=== PATIENT | male | born 1950 | race Caucasian/White ===

== ENCOUNTER 2023-07-21 05:42 | Observation (INO) ==
--- NOTE | 2023-05-14 09:26 | PAT Medication Instructions ---
Medication Instructions Date of Service May 14, 2023 Home Medications Docusate Sodium 100 mg PO BID PRN Constipation albuterol sulfate 90 mcg/actuation aerosol inhaler 2 puff inhalation QID PRN sob aspirin 81 mg capsule 81 mg PO DAILY cholecalciferol (vitamin D3) 125 mcg (5,000 unit) tablet (Vitamin D3) 125 mcg PO DAILY enalapril maleate 5 mg tablet (Vasotec) 5 mg PO QAM hydrocodone 5 mg-acetaminophen 325 mg tablet 1 tab PO Q8H PRN Pain lisinopril 20 mg tablet 20 mg PO QAM metformin 500 mg tablet 500 mg PO QAM metoprolol tartrate 25 mg tablet 25 mg PO QAM oxycodone-acetaminophen 10 mg-325 mg tablet 1 tab PO Q8H PRN Pain pantoprazole 40 mg tablet,delayed release 40 mg PO QAM tamsulosin 0.4 mg capsule 0.4 mg PO QAM vitamin K2 40 mcg tablet 40 mcg PO DAILY STOP taking 2 weeks before surgery (or as soon as possible if surgery is within 2 weeks) vitamin K2 40 mcg tablet 40 mcg PO DAILY DO NOT take the morning of surgery Docusate Sodium 100 mg PO BID PRN Constipation cholecalciferol (vitamin D3) 125 mcg (5,000 unit) tablet (Vitamin D3) 125 mcg PO DAILY enalapril maleate 5 mg tablet (Vasotec) 5 mg PO QAM lisinopril 20 mg tablet 20 mg PO QAM metformin 500 mg tablet 500 mg PO QAM Take morning of surgery With a small sip of water, OTHERWISE NOTHING TO EAT OR DRINK AFTER MIDNIGHT: albuterol sulfate 90 mcg/actuation aerosol inhaler 2 puff inhalation QID PRN sob (use if needed; please bring rescue inhaler with you to hospital day of surgery if possible) aspirin 81 mg capsule 81 mg PO DAILY (continue as normal unless told otherwise by surgeon) hydrocodone 5 mg-acetaminophen 325 mg tablet 1 tab PO Q8H PRN Pain (if needed) metoprolol tartrate 25 mg tablet 25 mg PO QAM oxycodone-acetaminophen 10 mg-325 mg tablet 1 tab PO Q8H PRN Pain (if needed) pantoprazole 40 mg tablet,delayed release 40 mg PO QAM tamsulosin 0.4 mg capsule 0.4 mg PO QAM Take evening before surgery Docusate Sodium 100 mg PO BID PRN Constipation (if needed) albuterol sulfate 90 mcg/actuation aerosol inhaler 2 puff inhalation QID PRN sob (if needed) hydrocodone 5 mg-acetaminophen 325 mg tablet 1 tab PO Q8H PRN Pain (if needed) oxycodone-acetaminophen 10 mg-325 mg tablet 1 tab PO Q8H PRN Pain (if needed) Other Notes If you have any questions please call us at [phone] or [phone] or [phone] or [phone]
--- NOTE | 2023-05-19 10:22 | Anesthesiology Consultation ---
Date of Service May 19, 2023 Assessment & Plan (1) Encounter for pre-operative examination: - Check BSG AM DOS - Infectious disease screening: Per assessment on 05/19/23: No known infectious disease contacts or current infectious disease symptoms. No noted recent Covid positive test result. - Outpatient joint assessment: Pt currently scheduled for inpatient pathway. If surgeon requests review for outpatient joint pathway, patient is not recommended candidate for outpatient joint program from anesthesia standpoint. - Cardiology visit (03/12/23): Significant cardiac workup for chronic, atypical chest pain (dating back 15+ years, at baseline/unchanged per patient) including several stress tests, coronary CTA, echos, cardiac cath. "Coronary artery disease (nonobstructive by cath 02/2022): Stable. Nuclear stress test in January was normal (ordered by PCP for chest pain). LV function normal on recently ech ocardiogram.. Aortic stenosis: Moderate by recent echocardiogram.. Will continue to monitor- no intervention required at this time- repeat echocardiogram in one year.. Ascending aortic aneurysm: 4.5 cm on recent echocardiogram- no significant change compared to prior study.. Will reevaluate on follow up echo next year" - *Moderate aortic stenosis: Per echo 03/2023* - Patient scheduled to see PCP prior to surgery. Awaiting upcoming PCP office visit (Dr. Luke Valladares/Michelle, appt 05/21). Patient otherwise acceptable risk for surgery. Chart Review Chart Review: Acceptable Risk for Surgery and Patient seen in Pre Admission Testing Teaching & Discussion Pre-Anesthesia Teaching/Discussion Notes: Instructed NPO after midnight before surgery,except medications with 15 cc of water. Medication instructions provided according to the PAT guidelines. History Surgery Operation Date: 06/16/23 08:15 Proposed Procedures p Right Total Knee Arthroplasty - Gerald Carvalho DO Height/Weight Height: 5 ft 9 in Weight: 98.8 kg Allergies Allergy/AdvReac Type Severity Reaction Status Date / Time No Known Allergies Allergy Unverified 05/13/23 09:02 Medications Home Medications Medication Instructions Recorded Confirmed Last Taken Docusate Sodium 100 mg PO BID PRN Constipation 05/13/23 05/13/23 Unknown albuterol sulfate 90 mcg/actuation 2 puff inhalation QID PRN sob 05/13/23 05/13/23 Unknown aerosol inhaler aspirin 81 mg capsule 81 mg PO DAILY 05/13/23 05/13/23 Unknown cholecalciferol (vitamin D3) 125 125 mcg PO DAILY 05/13/23 05/13/23 Unknown mcg (5,000 unit) tablet (Vitamin D3) enalapril maleate 5 mg tablet 5 mg PO QAM 05/13/23 05/13/23 Unknown (Vasotec) hydrocodone 5 mg-acetaminophen 325 1 tab PO Q8H PRN Pain 05/13/23 05/13/23 Unknown mg tablet lisinopril 20 mg tablet 20 mg PO QAM 05/13/23 05/13/23 Unknown metformin 500 mg tablet 500 mg PO QAM 05/13/23 05/13/23 Unknown metoprolol tartrate 25 mg tablet 25 mg PO QAM 05/13/23 05/13/23 Unknown oxycodone-acetaminophen 10 mg-325 1 tab PO Q8H PRN Pain 05/13/23 05/13/23 Unknown mg tablet pantoprazole 40 mg tablet,delayed 40 mg PO QAM 05/13/23 05/13/23 Unknown release tamsulosin 0.4 mg capsule 0.4 mg PO QAM 05/13/23 05/13/23 Unknown vitamin K2 40 mcg tablet 40 mcg PO DAILY 05/13/23 05/13/23 Unknown Past Medical History Medical History CAD (coronary artery disease) Cardiac cath 02/2022: Nonobstructive CAD (20% proximal to mid LAD, 20% proximal D1, 20% proximal LCx) > medical management recommended Aortic stenosis Echo 03/2023: Moderate aortic stenosis (MG 31 mmHg, LIZETH 1.5 cm) Environmental and seasonal allergies Edema of both feet occasionally Peripheral neuropathy History of COVID-2019- resolved HTN (hypertension) GERD (gastroesophageal reflux disease) Diabetes Diet controlled Asthma Sleep apnea No device Dyslipidemia Exercise / Class Metabolic Activity III < 4 Walking/Shop/Light housework (one FS (no CP, no SOB)) Past Surgical History Surgical History Hx of tonsillectomy Hx of cardiac catheterization 02/2022- no stents Hx of bilateral cataract extraction Hx of colonoscopy Hx of shoulder surgery History of left knee replacement Hx of cholecystectomy Past Anesthesia History No Hx of Anesthesia Complications and No Family Hx of Anesthesia Complications History of PONV No Hx of PONV and No Hx of Motion Sickness Social History Smoking Status: Never smoker Do You Dip or Chew Tobacco: Yes (Daily- advised none DOS) Hx Alcohol Use: Yes alcohol intake frequency: a few times a week Hx Substance Use: No substance use type: does not use Review of Systems Chronic intermittent chest pain x past 15+ years s/p extensive/unremarkable cardiac workup including EKG/echo/stress/cardiology evaluation. No noted stressors. Determined to be atypical chest pain. Occasional wheezing r/t asthma, unchanged/at baseline. Rare palpitations. Patient denies chest pain, shortness of breath, fever, chills, cough. Physical Exam Vital Signs VITALS BP 126/80 P 77 TEMP 98.0 SP02 95%RA RESP 18 PHYSICAL Full cervical extension range of motion. Full TMJ range of motion. TMD 4 finger breaths Mallampati Score 1 Dentition: intact Lungs: clear throughout to auscultation Cardiac: regular rate and rhythm, no murmurs noted Spine: normal Carotid arteries: negative bruit Extremities: no LE edema Lab Results Anesthesia Preop Results Results Anesthesia Widget: WBC 7.50 K/ul (4.8-10.8) 05/19/23 Hgb 15.5 g/dl (14.0-18.0) 05/19/23 Hct 41.9 % (42.0-52.0) L 05/19/23 Plt 179 K/uL (130-400) 05/19/23 Na 137 mmol/L (136-145) 05/19/23 K 3.6 mmol/L (3.5-5.1) 05/19/23 Cl 102 mmol/L (98-107) 05/19/23 CO2 25 mmol/L (21-32) 05/19/23 BUN 10 mg/dl (6-23) 05/19/23 Creat 0.65 mg/dl (0.6-1.4) 05/19/23 Glucose Level 145 mg/dl (70-99(Fasting)) H 05/19/23 PT 11.4 Seconds (9.0-12.0) 05/19/23 PTT 31 Seconds (21-31) 05/19/23 INR 1.0 (0.9-1.1) 05/19/23 HA1c 6.3 % (4.5-5.6) H 05/19/23 Urine Color Yellow 05/19/23 Urine Appearance Clear (Clear) 05/19/23 Urine pH 5.5 (4.5-7.5) 05/19/23 Urine Specific [place] 1.017 (1.000-1.030) 05/19/23 Urine Protein Trace (Negative) H 05/19/23 Urine Glucose (UA) Negative (Negative) 05/19/23 Urine Ketones Negative (Negative) 05/19/23 Urine Blood Negative (Negative) 05/19/23 Urine Nitrite Negative (Negative) 05/19/23 Urine Bilirubin Negative (Negative) 05/19/23 Urine Urobilinogen Negative (Negative) 05/19/23 Urine Leukocyte Esterase Negative (Negative) 05/19/23 Urine WBC (Auto) 1-5 /hpf (0-5) 05/19/23 Urine RBC (Auto) 0-4 /hpf (0-4) 05/19/23 Urine Hyaline Casts (Auto) 0 /lpf (0-5) 05/19/23 Urine Epithelial Cells (Auto) 0-5 /lpf (0-5) 05/19/23 Urine Bacteria (Auto) Negative (Negative) 05/19/23 Blood Type O Positive 05/19/23 Antibody Screen NEGATIVE 05/19/23 Testing Electrocardiogram Date: 08/28/22 SR at 75bpm. "Within normal limits" Chest X-Ray Date: 06/10/23 FINDINGS: A few small bibasilar linear densities which favor subsegmental atelectasis or scarring. Otherwise, the lungs are clear. No pleural effusions. No pneumothorax. The cardiac silhouette is top normal in size. No acute fractures. Prior cholecystectomy. IMPRESSION: No acute process. Echocardiogram Date: 03/11/23 EF 60%. Moderately calcified aortic valve. Doppler data is consistent with moderate aortic stenosis (MG 31 mmHg, LIZETH 1.5 cm). Mild to moderate AR. Dilated ascending aorta, 4.5 cm. Stress Test Date: 02/02/23 Type: nuclear Normal study. There is normal uptake of radioactivity on both the stress and the resting images there is no evidence of ischemic changes or old myocardial infarct. Normal LV wall motion. Calculated LV EF 55%. "Normal study" Cardiac Catheterization Date: 03/05/22 Nonobstructive CAD (20% proximal to mid LAD, 20% proximal D1, 20% proximal LCx). Systemic hypertension. Recommendations: Optimize medical therapy. Increase beta-vel and add amlodipine. Continue aspirin and statin therapy.
--- NOTE | 2023-05-25 07:48 | History & Physical Report ---
Date of Service May 25, 2023 date of surgery: 06/16/23 Procedure: Right Total Knee Arthroplasty Surgeon: Gerald Carvlaho, Assessment & Plan (1) Arthritis of right knee: Plan: Risk and benefits of procedure were discussed, he wishes to proceed with a right total knee arthroplasty. Plan to be overnight stay at the hospital with discharge home with home health physical therapy. Will place on aspirin 81 mg twice a day for 1 month postop DVT prophylaxis, he otherwise has no other questions or concerns The risks and benefits have been discussed including, but not limited to, risk of infection, nerve injury, stiffness, loss of motion, failure to improve, etc. Reasonable outcomes and options of treatment were discussed. An explanation of appropriate alternatives to the procedure that may be advantageous were discussed and their risks and benefits, as well as the risks and benefits of not proceeding with treatment. I offered to answer any additional inquiries concerning the treatment involved. All the patient's questions were answered. The patient is agreeable, understanding of the treatment plan and alternatives, and wishes to proceed with the treatment plan. History of Present Illness Chief Complaint: Right knee pain Primary Care Provider: Luke Valladares MD Mr Crystal is a pleasant 72-year-old male who presented for preop evaluation prior to his upcoming right total knee arthroplasty. He has a longstanding history of right knee pain, has remote history of right knee arthroscopy with ACL reconstruction and partial medial lateral meniscectomies approximately 10 years ago. Since that time he is undergone injections, use of oral anti- inflammatories and Tylenol without improvement. X-rays were reviewed which show degenerative changes to his right knee. He has a history of left total knee arthroplasty at this point time is failed conservative measures and wishes to proceed with a right total knee replacement Allergies Allergy/AdvReac Type Severity Reaction Status Date / Time No Known Allergies Allergy Unverified 05/13/23 09:02 Home Medications Medication Instructions Recorded Confirmed Type Docusate Sodium 100 mg PO BID PRN Constipation 05/13/23 05/13/23 History albuterol sulfate 90 mcg/actuation 2 puff inhalation QID PRN sob 05/13/23 05/13/23 History aerosol inhaler aspirin 81 mg capsule 81 mg PO DAILY 05/13/23 05/13/23 History cholecalciferol (vitamin D3) 125 125 mcg PO DAILY 05/13/23 05/13/23 History mcg (5,000 unit) tablet (Vitamin D3) enalapril maleate 5 mg tablet 5 mg PO QAM 05/13/23 05/13/23 History (Vasotec) hydrocodone 5 mg-acetaminophen 325 1 tab PO Q8H PRN Pain 05/13/23 05/13/23 History mg tablet lisinopril 20 mg tablet 20 mg PO QAM 05/13/23 05/13/23 History metformin 500 mg tablet 500 mg PO QAM 05/13/23 05/13/23 History metoprolol tartrate 25 mg tablet 25 mg PO QAM 05/13/23 05/13/23 History oxycodone-acetaminophen 10 mg-325 1 tab PO Q8H PRN Pain 05/13/23 05/13/23 History mg tablet pantoprazole 40 mg tablet,delayed 40 mg PO QAM 05/13/23 05/13/23 History release tamsulosin 0.4 mg capsule 0.4 mg PO QAM 05/13/23 05/13/23 History vitamin K2 40 mcg tablet 40 mcg PO DAILY 05/13/23 05/13/23 History Past Med/Surg History Medical History CAD (coronary artery disease) Cardiac cath 02/2022: Nonobstructive CAD (20% proximal to mid LAD, 20% proximal D1, 20% proximal LCx) > medical management recommended Aortic stenosis Echo 03/2023: Moderate aortic stenosis (MG 31 mmHg, LIZETH 1.5 cm) Environmental and seasonal allergies Edema of both feet occasionally Peripheral neuropathy History of COVID-19 2019- resolved HTN (hypertension) GERD (gastroesophageal reflux disease) Diabetes Diet controlled Asthma Sleep apnea No device Dyslipidemia Surgical History Hx of tonsillectomy Hx of cardiac catheterization 02/2022- no stents Hx of bilateral cataract extraction Hx of colonoscopy Hx of shoulder surgery History of left knee replacement Hx of cholecystectomy Social History Smoking Status: Never smoker Tobacco Type: Smokeless Tobacco (Dip or Chew) Second Hand Exposure: No; Do You Dip or Chew Tobacco: Yes (Daily- advised none DOS); Hx Alcohol Use: Yes Hx Substance Use: No Preferred Language: Ukrainian Communication Ability: Effective Conventions Assistant Required: No Beliefs That Will Affect Care: None Current Living Situation: Significant Other Current Living Situation Comment: girlfriend Feels Safe at Home: Yes Assistive Devices: Glasses Review of Systems Review of Systems: All systems reviewed & are unremarkable except as noted in HPI & below Constitutional: no fever, no chills and no sweats Respiratory: no cough and no dyspnea Cardiovascular: no chest pain, no dyspnea and no orthopnea Gastrointestinal: no abdominal pain, no nausea and no vomiting Musculoskeletal: as per Subjective / HPI Physical Exam Physical Exam: HT: 5ft 9in WT: 98.8kg Constitutional: WD/WN, vitals as above no acute distress Respiratory: normal respiratory effort, lungs clear to auscultation no respiratory distress, no labored breathing and does not use accessory muscles Cardiovascular: RRR, no murmur, no edema Gastrointestinal (Abdomen): normal bowel sounds, soft, nontender, no hepatosplenomegaly Musculoskeletal: Knee: + knee abnormal to inspection (RIGHT KNEE), + effusion (+1 effusion), + surgical incision (well healed incisions), + limited ROM of knee (ROM 0/3/110), + knee ROM with crepitation, + joint line tenderness (medial joint line) and + Leobardo's sign positive; no deformity, no skin erythema, no ecchymosis, no valgus laxity, no varus laxity, anterior drawer test negative, Josselyn's sign negative and pivot shift test negative Results & Data Results & Data Diagnostic Findings 4 views right knee show advanced generative changes of the right knee with complete loss of joint space medial compartment and patellofemoral joint, joint joint space narrowing osteophyte formation subchondral sclerosis. Endobutton present from prior ACL reconstruction
--- NOTE | 2023-06-22 09:27 | History & Physical Report ---
Date of Service June 22, 2023 date of surgery: 07/21/23 Procedure: Right Total Knee Arthroplasty Surgeon: Gerald Carvalho, Assessment & Plan (1) Arthritis of right knee: Plan: Risk and benefits of procedure were discussed, he wishes to proceed with a right total knee arthroplasty. Plan to be overnight stay at the hospital with discharge home with home health physical therapy. Will place on aspirin 81 mg twice a day for 1 month postop DVT prophylaxis, he otherwise has no other questions or concerns The risks and benefits have been discussed including, but not limited to, risk of infection, nerve injury, stiffness, loss of motion, failure to improve, etc. Reasonable outcomes and options of treatment were discussed. An explanation of appropriate alternatives to the procedure that may be advantageous were discussed and their risks and benefits, as well as the risks and benefits of not proceeding with treatment. I offered to answer any additional inquiries concerning the treatment involved. All the patient's questions were answered. The patient is agreeable, understanding of the treatment plan and alternatives, and wishes to proceed with the treatment plan. History of Present Illness Chief Complaint: right knee pain Primary Care Provider: Luke Valladares MD Mr Crystal is a pleasant 72-year-old male who presented for preop evaluation prior to his upcoming right total knee arthroplasty. He has a longstanding history of right knee pain, has remote history of right knee arthroscopy with ACL reconstruction and partial medial lateral meniscectomies approximately 10 years ago. Since that time he is undergone injections, use of oral anti- inflammatories and Tylenol without improvement. X-rays were reviewed which show degenerative changes to his right knee. He has a history of left total knee arthroplasty at this point time is failed conservative measures and wishes to proceed with a right total knee replacement Allergies Allergy/AdvReac Type Severity Reaction Status Date / Time No Known Allergies Allergy Unverified 05/13/23 09:02 Home Medications Medication Instructions Recorded Confirmed Type Docusate Sodium 100 mg PO BID PRN Constipation 05/13/23 05/13/23 History albuterol sulfate 90 mcg/actuation 2 puff inhalation QID PRN sob 05/13/23 05/13/23 History aerosol inhaler aspirin 81 mg capsule 81 mg PO DAILY 05/13/23 05/13/23 History cholecalciferol (vitamin D3) 125 125 mcg PO DAILY 05/13/23 05/13/23 History mcg (5,000 unit) tablet (Vitamin D3) enalapril maleate 5 mg tablet 5 mg PO QAM 05/13/23 05/13/23 History (Vasotec) hydrocodone 5 mg-acetaminophen 325 1 tab PO Q8H PRN Pain 05/13/23 05/13/23 History mg tablet lisinopril 20 mg tablet 20 mg PO QAM 05/13/23 05/13/23 History metformin 500 mg tablet 500 mg PO QAM 05/13/23 05/13/23 History metoprolol tartrate 25 mg tablet 25 mg PO QAM 05/13/23 05/13/23 History oxycodone-acetaminophen 10 mg-325 1 tab PO Q8H PRN Pain 05/13/23 05/13/23 History mg tablet pantoprazole 40 mg tablet,delayed 40 mg PO QAM 05/13/23 05/13/23 History release tamsulosin 0.4 mg capsule 0.4 mg PO QAM 05/13/23 05/13/23 History vitamin K2 40 mcg tablet 40 mcg PO DAILY 05/13/23 05/13/23 History Past Med/Surg History Medical History CAD (coronary artery disease) Cardiac cath 02/2022: Nonobstructive CAD (20% proximal to mid LAD, 20% proximal D1, 20% proximal LCx) > medical management recommended Aortic stenosis Echo 03/2023: Moderate aortic stenosis (MG 31 mmHg, LIZETH 1.5 cm) Environmental and seasonal allergies Edema of both feet occasionally Peripheral neuropathy History of COVID-19 2019- resolved HTN (hypertension) GERD (gastroesophageal reflux disease) Diabetes Diet controlled Asthma Sleep apnea No device Dyslipidemia Surgical History Hx of tonsillectomy Hx of cardiac catheterization 02/2022- no stents Hx of bilateral cataract extraction Hx of colonoscopy Hx of shoulder surgery History of left knee replacement Hx of cholecystectomy Social History Smoking Status: Never smoker Tobacco Type: Smokeless Tobacco (Dip or Chew) Second Hand Exposure: No; Do You Dip or Chew Tobacco: Yes (Daily- advised none DOS); Tobacco Cessation Education Requested by Patient: No Hx Alcohol Use: Yes Hx Substance Use: No Preferred Language: Bur[place]ian Communication Ability: Effective Fire Prevention Inspector Required: No Beliefs That Will Affect Care: None Current Living Situation: Significant Other Current Living Situation Comment: girlfriend Other Information That Helps Us Care for You: No Feels Safe at Home: Yes Safety Concerns: Feels Safe At This Time Assistive Devices: Glasses Assistive Devices Comment: reading glasses Review of Systems Constitutional: no fever, no chills and no sweats Respiratory: no cough and no dyspnea Cardiovascular: no chest pain, no dyspnea and no orthopnea Gastrointestinal: no abdominal pain, no nausea and no vomiting Musculoskeletal: as per Subjective / HPI Physical Exam Physical Exam: HT: 5ft 9in WT: 98.8kg Constitutional: WD/WN, vitals as above no acute distress Respiratory: normal respiratory effort, lungs clear to auscultation no respiratory distress, no labored breathing and does not use accessory muscles Cardiovascular: RRR, no murmur, no edema Gastrointestinal (Abdomen): normal bowel sounds, soft, nontender, no hepatosplenomegaly Musculoskeletal: Knee: + knee abnormal to inspection (RIGHT KNEE), + effusion (+1 effusion), + surgical incision (well healed incisions), + limited ROM of knee (ROM 0/3/110), + knee ROM with crepitation, + joint line tenderness (medial joint line) and + Leobardo's sign positive; no deformity, no skin erythema, no ecchymosis, no valgus laxity, no varus laxity, anterior drawer test negative, Josselyn's sign negative and pivot shift test negative Results & Data Results & Data Diagnostic Findings 4 views right knee show advanced generative changes of the right knee with complete loss of joint space medial compartment and patellofemoral joint, joint joint space narrowing osteophyte formation subchondral sclerosis. Endobutton present from prior ACL reconstruction
[~2023-07-21 05:42] MED LIST: ACETAMINOPHEN 500 MG TAB PO SCH; CeleBREX 200 MG CAP PO SCH; FAMOTIDINE 20 MG TAB PO SCH; GABAPENTIN 300 MG CAP PO SCH; LR 500ML BOLUS, THEN 15ML/HR IV SCH; LR 60ML/HR IV SCH; METOCLOPRAMIDE HCL 10 MG TABLET PO SCH; ROPIV 0.5% 246mg, Ketorolac 30mg, EPINEPHrine 0.5mg in NSS INFIL SCH; TRANEXAMIC ACID 1,000 MG **IV Intra-op IV SCH; TRANEXAMIC ACID 1,000 MG **IV Pre-op IV SCH
[2023-07-21] MEDS: LR 500ML BOLUS, THEN 15ML/HR IV SCH (06:17)
[2023-07-21] MEDS: LR 60ML/HR IV SCH (06:17)
[2023-07-21] MEDS ORDERED: EPINEPHrine INJ 1 MG/ML AMP ONE (06:26)
[2023-07-21] MEDS ORDERED: BUPIVACAINE 0.5 % 5 MG/1 ML PF 10ML VIAL ONE (06:27)
[2023-07-21] MEDS: FAMOTIDINE 20 MG TAB PO SCH (06:27)
[2023-07-21] MEDS: CeleBREX 200 MG CAP PO SCH (06:27)
[2023-07-21] MEDS ORDERED: BUPIVACAINE 0.25% PF 30 ML VIAL ONE (06:27)
[2023-07-21] MEDS ORDERED: DEXAMETHASONE SOD INJ 4 MG/ML VIAL ONE (06:27)
[2023-07-21] MEDS: METOCLOPRAMIDE HCL 10 MG TABLET PO SCH (06:27)
[2023-07-21] MEDS: GABAPENTIN 300 MG CAP PO SCH (06:27)
[2023-07-21] MEDS: ACETAMINOPHEN 500 MG TAB PO SCH ×2 (06:28→14:12)
--- NOTE | 2023-07-21 07:08 | History & Physical Bridge Note ---
Date of Service July 21, 2023 History & Physical Bridge Note I have examined the patient, reviewed the History & Physical and in the interval since the performance of the History & Physical I have noted the following changes of clinical significance: no changes noted
[2023-07-21] MEDS ORDERED: ePHEDrine sulfate 50 MG/ML AMP IV PRN (07:28)
[2023-07-21] MEDS ORDERED: ONDANSETRON INJ 2 MG/ML 2 ML VIAL IV PRN (07:28)
[2023-07-21] MEDS ORDERED: ATROPINE SULFATE 0.1 MG/ML 10ML SYR IV PRN (07:28)
[2023-07-21] MEDS ORDERED: fentaNYL citrate PF 100 MCG/2 ML VIAL IV PRN (07:28)
[2023-07-21] MEDS ORDERED: PROMETHAZINE HCL 6.25 MG in SODIUM CHLORIDE 0.9% 50 ML IV PRN (07:28)
[2023-07-21] MEDS ORDERED: fentaNYL citrate PF 100 MCG/2 ML VIAL ONE (07:40)
[2023-07-21] MEDS ORDERED: MIDAZOLAM HCL 1 MG/ML 2ML VIAL ONE (07:40)
[2023-07-21] MEDS ORDERED: PROPOFOL IV EMULSION 10 MG/ML 20 ML VIAL IV ONE ×2 (07:45→09:42)
[2023-07-21] MEDS ORDERED: LIDOCAINE 2% 2 ML VIAL/AMP(20MG/ML) INFIL ONE (07:45)
[2023-07-21] MEDS: TRANEXAMIC ACID 1,000 MG **IV Pre-op IV SCH (08:18)
[2023-07-21] MEDS: ROPIV 0.5% 246mg, Ketorolac 30mg, EPINEPHrine 0.5mg in NSS INFIL SCH (08:56)
[2023-07-21] MEDS: ORTHO JOINT ANESTHETIC ONE (08:57)
[2023-07-21] MEDS: TRANEXAMIC ACID 1,000 MG **IV Intra-op IV SCH (09:36)
--- NOTE | 2023-07-21 09:42 | Operative Report ---
Post Operative Report Pre & Post Diagnosis Operation Date: 07/21/23 08:15 Pre-Op Diagnosis: Right Knee Osteoarthritis Post-Op Diagnosis: Right Knee Osteoarthritis I identified the patient and participated in the time-out.: Yes Procedure Operation Date: 07/21/23 08:15 Actual Procedures p Right Total Knee Arthroplasty(Right)Utilizing [employer] journey 2 patient-matched total knee arthroplasty size femur 7 tibia 7 poly 11 patella 32 ace - Gerald Carvalho DO Surgeon Gerald Carvalho DO Principal Consulting Engineer Collins MURRIETA Estimated Blood Loss 5 Findings Consistent with Post-Op Diagnosis Patient presents with severe end-stage tricompartmental DJD varus alignment subchondral sclerosis marginal osteophytes eburnated [id number] with moderate to large effusion Specimens Bone and cartilage Drains Medium bore Hemovac Anesthesia Type MAC Spinal Regional Complications none Disposition Accompanied Patient To Recovery: No Disposition: Recovery Room Indications Patient has severe end-stage tricompartmental degenerative joint disease after having failed attempted conservative management and physical therapy anti- inflammatories relative rest activity modification corticosteroid injection viscosupplementation the above intraoperative findings were noted Description of Procedure After proper prepping and draping of the Right lower extremity anterior midline incision was made over the region of the extensor extensor mechanism after meticulous hemostasis was obtained and maintained in subcutaneous tissues a medial parapatellar incision was made The patella was subluxed lateralward the medial lateral gutter were cleaned from any hypertrophic synovitis and scar tissue of the distal femoral block was placed and the distal femoral osteotomy cut was made subsequently the chamfers anterior and posterior osteotomy cuts were made utilizing the 4-in-1 block the tibia was subsequently subluxed anteriorward medial and ateral meniscal remnants were excised in their entirety remnants of the anterior and posterior cruciate ligaments were excised in their entirety excellent exposure of the proximal tibia was obtained the tibial osteotomy guide was placed on the proximal tibial osteotomy cut was made once again the knee was irrigated with copious amounts of sterile saline solution the patella was subsequently everted lateralward thickened scar tissue around the patella was removed the patella was subsequently cut utilizing a freehand technique and was drilled prepared for final preparation and placement of patella socially flexion-extension gaps were checked and the equal and symmetric trials were placed to the appropriate femoral and tibial trials with poly-spacer being placed for equal flexion and extension gaps and full range of motion including extension to 0 and flexion to 140 the trial components after having been taken to recovery range of motion was subsequently removed meticulous hemostasis was obtained and maintained subsequently a knee block injection of joint cocktail including ropivacaine 0.5% 150 mg. Bupivacaine 0.5% epinephrine 1-200,030 mL's toradol 30 mg dexamethasone 4 mg ketamine 10 mg clonidine 100 micrograms normal saline solution 30 mg was infiltrated into the soft tissues of the posterior knee medial lateral gutters and periosteal synovium special attention was paid to protect neurovascular structures at all times subsequently trial components having been removed the knee was irrigated with sterile saline solution. debris was removed the proximal tibia was subsequently prepared and was made ready for the placement of the tibial component tibial component was also cemented and tamped into position the femoral component was subsequently placed and cemented in the position the patellar component was subsequently cemented in position because hemostasis once again obtained and maintained wound having been thoroughly irrigated with debridement and debridement lavage was performed as well as a medial parapatellar incision closed with #1 Vicryl in interrupted fashion subcutaneous was closed with #2 Vicryl skin was closed with skin clips. PA-C was necessary for prepping and drapping as well as wound closure of deep fascia Sub cutaneous tissue and skin and was necessary for the case. A sterile compressive dressing was placed patient was taken to recovery in stable condition of report dictated by Deven I attest to the content of the Intraoperative Record and any orders documented therein. Any exceptions are noted below.Due to the complex nature of the procedure, the entire surgery was performed with the operational assistance ofFADUMO Aguayo. The financial assistant, under direct supervision, was involved in the actual performance of all aspects of the surgical procedure including hemostasis, tissue retraction and incision, instrument management, patient positioning, and wound closure. I attest to the content of the Intraoperative Record and any orders documented therein. Any exceptions are noted below.
--- NOTE | 2023-07-21 11:13 | XRay Report ---
RIGHT KNEE 2 VIEWS History: Right total knee arthroplasty. Degenerative arthritis. Postop. FINDINGS: The patient is status post a right total knee arthroplasty. The hardware is intact. No frac ture or dislocation surgical drains are in place. IMPRESSION: Right total knee arthroplasty. No evidence for hardware complication. ACT 112: Negative or not required by law. Electronically signed by: Elmer Prasad M.D. 07/21/2023 11:11 AM
[2023-07-21] MEDS ORDERED: HYDROmorphone INJ 1 MG/ML SYRINGE IV PRN (11:47)
[2023-07-21] MEDS ORDERED: NALOXONE HCL 0.4 MG/1 ML VIAL/CARP IV PRN (11:47)
[2023-07-21] MEDS ORDERED: METOCLOPRAMIDE HCL INJ 5 MG/ML 2 ML VIAL IV PRN (11:47)
[2023-07-21] MEDS ORDERED: diphenhydrAMINE Capsule 25 MG CAP PO PRN (11:47)
[2023-07-21] MEDS ORDERED: MAGNESIUM HYDROXIDE SUSP 30 ML UDC PO PRN (11:47)
[2023-07-21] MEDS ORDERED: ALBUTEROL HFA 8 GM INHALER INH PRN (11:47)
[2023-07-21] MEDS ORDERED: oxyCODONE HCL IR 5 MG TAB (IMMEDIATE RELEASE) PO PRN (11:47)
[2023-07-21] MEDS ORDERED: bisacodyL 10 MG SUPP PR PRN (11:47)
[2023-07-21] MEDS ORDERED: PHARMACY GLYCEMIC MGMT CONSULT PRN (11:47)
--- NOTE | 2023-07-21 12:20 | Anesthesiology Progress Note ---
Date of Service July 21, 2023 Anesthesia Post Procedure Vital Signs Vital Signs: Temp Pulse Pulse Resp BP Pulse Ox O2 Del Method 07/21/23 11:57 36.6 C 53 L 18 130/83 96 Nasal Cannula 07/21/23 11:25 36.6 C 57 L 16 115/72 96 Nasal Cannula 07/21/23 11:05 56 L 15 124/72 95 Nasal Cannula 07/21/23 10:55 55 L 16 125/73 95 Nasal Cannula 07/21/23 10:45 36.6 C 55 L 16 124/68 95 Nasal Cannula 07/21/23 10:35 55 L 16 123/70 95 Nasal Cannula 07/21/23 10:25 54 L 17 121/67 95 Nasal Cannula 07/21/23 10:15 67 17 130/78 95 Oxymask 07/21/23 10:09 36.8 C 57 L 17 112/69 93 Oxymask 07/21/23 06:22 Room Air 07/21/23 06:18 36.5 C 63 20 166/87 H 95 Room Air O2 Flow Rate 07/21/23 11:57 3.5 07/21/23 11:25 2 07/21/23 11:05 2 07/21/23 10:55 2 07/21/23 10:45 2 07/21/23 10:35 2 07/21/23 10:25 2 07/21/23 10:15 8 07/21/23 10:09 8 07/21/23 06:22 07/21/23 06:18 Transfer of Care Handoff Completed per policy Notes Mental Status: alert / awake / arousable Patient Amnestic to Procedure: Yes Nausea / Vomiting: adequately controlled Pain: adequately controlled Airway Patency, RR, SpO2: stable & adequate BP & HR: stable & adequate Hydration State: stable & adequate Neuraxial Anesthesia: was administered and sensory block is resolving Anesthetic Complications: no major complications apparent and Pt Satisfied with anesthetic care
[2023-07-21] MEDS: METOPROLOL TARTRATE 25 MG TAB PO SCH (12:32)
[2023-07-21] MEDS: lisinopril 20 MG TAB PO SCH (12:32)
[2023-07-21] MEDS: KETOROLAC TROMETHAMINE 15 MG/ML VIAL IV SCH (12:32)
[2023-07-21] MEDS: TAMSULOSIN HCL 0.4 MG CAP PO SCH (12:32)
[2023-07-21] MEDS: ASPIRIN 81 MG ECTAB PO SCH (12:33)
[2023-07-21] MEDS: CHOLECALCIFEROL 125 MCG (5,000 UNITS) TAB PO SCH (12:33)
[2023-07-21] MEDS: MULTIVITAMIN TAB PO SCH (12:33)
[2023-07-21] MEDS: DOCUSATE SODIUM 100 MG CAP PO SCH (12:33)
[2023-07-21] MEDS: oxyCODONE HCL 10 MG TABCR (OxyCONTIN) PO SCH (12:35)
--- NOTE | 2023-07-21 12:41 | Pharmacy Report ---
Pharmacy Glycemic Short Note 2 - Date of Service July 21, 2023 - Glycemic Short BSG Results (Last 24 hours): 07/21/23 07/21/23 07/21/23 06:12 10:15 11:42 POC Glucose 184 H 185 H 209 H OUTPATIENT ANTIDIABETIC REGIMEN: * metformin 500mg PO daily HbA1C: 6.3% (05/19/23) ASSESSMENT: * Pt is a 72 year old male admitted, s/p R total knee arthroplasty. History of DM2. Pharmacy consulted to assist with glycemic management while inpatient. * BSGs 184-209 pre and post op. * Received 4mg intra-op IV dex. Diet ordered. * Will initiate moderate stress bolus insulin only for now pending BSG trend, with overnight checks since steroids intra-op. PLAN FOR INPATIENT GLYCEMIC CONTROL: * Hold outpatient oral diabetes medications * Basal insulin * hold * Bolus insulin * NovoLog per scale ACHS or Q6hrs while NPO * Goal Range: Low 110 mg/dL - High 140 mg/dL * Correction Factor: 25 mg/dL/unit * Nutritional / Prandial insulin per carb ratio of 1 unit per 8 grams CHO consumed
[2023-07-21] MEDS: INSULIN ASPART PER UNIT CHARGE SC SCH (12:43)
[2023-07-21] MEDS: NON-FORMULARY MEDICATION (Vitamin K2 40 mcg Tablet) PO SCH (13:36)
[2023-07-21] MEDS: NICOTINE 7 MG/24 HR TDSY TD SCH (15:32)
[2023-07-21] MEDS: SODIUM CHLORIDE 0.9% 1,000 ML IV SCH (15:33)
[2023-07-21] MEDS: ceFAZolin 2000MG 2,000 MG/15 ML SYR IV SCH (16:50)
[2023-07-21] MEDS: HYDROCODONE/ACETAMOPHEN 5/325MG TAB PO PRN (18:07)
[2023-07-21] MEDS: SENNA 8.6 MG TAB PO SCH (19:39)
[2023-07-21] MEDS: ONDANSETRON INJ 2 MG/ML 2 ML VIAL IV PRN (19:45)
[2023-07-22] MEDS: INSULIN ASPART PER UNIT CHARGE SC SCH (02:11)
[2023-07-22 06:31] LABS: Hematocrit (blood only) 32.1 % (42.0-52.0); Hemoglobin 11.7 g/dl (14.0-18.0); Mean Corpuscular Hemoglobin 32.7 pg (25.0-34.0); Mean Corpuscular Hgb Conc 36.4 g/dL (32.0-36.0); Mean Corpuscular Volume 89.7 fL (80.0-100.0); Mean Platelet Volume 10.1 fL (9.4-12.4); Platelet Count 139 K/uL (130-400); RDW Coefficient of Variation 13.4 % (11.5-14.5); Red Blood Count 3.58 M/uL (4.70-6.10); White Blood Count 10.94 K/ul (4.8-10.8)
--- NOTE | 2023-07-22 07:04 | Orthopedic Progress Note ---
Date of Service July 22, 2023 Assessment & Plan (1) History of total right knee replacement: Plan: POD #1 s/p Right TKA pt/ot dvt proph with SAUL/SCD/ASA plan for d/c home with HHPT Admission and Anticipated Discharge Date Admission Date: July 21, 2023 Subjective POD #1 s/p Right TKA Review of Systems Constitutional: no fever, no chills and no sweats Respiratory: no cough and no dyspnea Cardiovascular: no chest pain and no dyspnea Gastrointestinal: no abdominal pain, no nausea and no vomiting Physical Exam Physical Exam: Vital Signs Temp 36.5 C 07/22/23 02:01 Pulse 59 L 07/22/23 02:01 Resp 16 07/22/23 02:01 BP 122/79 07/22/23 02:01 Pulse Ox 94 07/22/23 02:01 O2 Del Method Room Air 07/22/23 02:01 O2 Flow Rate 2 07/21/23 14:16 Intake & Output 07/21/23 07/22/23 07/22/23 18:59 06:59 18:59 Intake Total 2162.5 / 4219.167 2055.7 / 4219.16 7 Output Total 186 / 1561 1375 / 1561 Balance 1976.5 / 2658.167 681.667 / 2658.167 Weight 98.5 kg Intake: IV 272.5 / 2329.167 2055.667 / 2329.16 7 Lactated Ringe r's 1,000 ml @ 15 0 / 0 mls/hr IV .Q24 H DAMARIS Rx#: [id number] Sodium Chlorid e 0.9% 1,000 ml @ 2055.667 / 2055.66 7 100 mls/hr IV .Q10H DAMARIS Rx#: [id number] Tranexamic Aci d / 0.7% NaCl 1, 200 / 200 000 mg In 100 ml @ 600 mls/hr IV TODAY@0600 DAMARIS Rx#:[id number] ceFAZolin 3000 MG 72.5 ml @ 130 72.5 / 72.5 mls/hr IV PREO P DAMARIS Rx#: [id number] IV Perioperative 1300 / 1300 Oral 200 / 200 Other 390 / 390 Output: Urine 100 / 1275 1175 / 1275 Estimated Blood Loss 5 / 5 Drain Output 80 / 280 200 / 280 Right Knee Hem ovac 80 / 280 200 / 280 # Bowel Movement s Other: Other Intake Patricia rce OR IV fluid # Unmeasured Voi ds 1 1 Musculoskeletal: Right Leg: NVDI, calf SNT, negative nathan sign. DP palpable, able to wiggle toes/ankle movement without difficulty. dressing clean dry and intact. Results & Data Vital Signs (Past 12 Hours) Vital Signs Temp Pulse Resp BP Pulse Ox O2 Del Method 07/22/23 02:01 36.5 C 59 L 16 122/79 94 Room Air 07/21/23 22:56 37.0 C 66 18 149/78 H 94 Room Air 07/21/23 19:18 36.5 C 55 L 18 127/69 94 Room Air Laboratory Results Laboratory Results WBC 10.94 K/ul (4.8-10.8) H 07/22/23 05:51 RBC 3.58 M/uL (4.70-6.10) L 07/22/23 05:51 Hgb 11.7 g/dl (14.0-18.0) L 07/22/23 05:51 Hct 32.1 % (42.0-52.0) L 07/22/23 05:51 MCV 89.7 fL (80.0-100.0) 07/22/23 05:51 MCH 32.7 pg (25.0-34.0) 07/22/23 05:51 MCHC 36.4 g/dL (32.0-36.0) H 07/22/23 05:51 RDW Std Deviation 44.0 fL (36.4-46.3) 07/22/23 05:51 RDW Coeff of Ozzie 13.4 % (11.5-14.5) 07/22/23 05:51 Plt Count 139 K/uL (130-400) 07/22/23 05:51 MPV 10.1 fL (9.4-12.4) 07/22/23 05:51 POC Glucose 211 mg/dl (70-99) H 07/22/23 02:01 Impressions Knee X-Ray 07/21/23 09:03 RIGHT KNEE 2 VIEWS History: Right total knee arthroplasty. Degenerative arthritis. Postop. FINDINGS: The patient is status post a right total knee arthroplasty. The hardware is intact. No fracture or dislocation surgical drains are in place. IMPRESSION: Right total knee arthroplasty. No evidence for hardware complication. ACT 112: Negative or not required by law. Electronically signed by: Elmer Prasad M.D. 07/21/2023 11:11 AM
[2023-07-22 07:05] LABS: BUN Creatinine Ratio 17.1 (10-20); Calcium 8.8 mg/dl (8.6-10.3); Creatinine Clr Calc Pharmacy 95.6 ml/min; Est GFR (African American) 103.1 ml/min; Potassium 4.1 mmol/L (3.5-5.1)
--- NOTE | 2023-07-22 07:12 | Discharge Summary ---
Date of Service date of discharge: July 22, 2023 date of admission: 07/21/23 Admission HPI Per Admitting Provider Mr Crystal is a pleasant 72-year-old male who presented for preop evaluation prior to his upcoming right total knee arthroplasty. He has a longstanding history of right knee pain, has remote history of right knee arthroscopy with ACL reconstruction and partial medial lateral meniscectomies approximately 10 years ago. Since that time he is undergone injections, use of oral anti- inflammatories and Tylenol without improvement. X-rays were reviewed which show degenerative changes to his right knee. He has a history of left total knee arthroplasty at this point time is failed conservative measures and wishes to proceed with a right total knee replacement Principal Diagnosis right knee arthritis Discharge Exam Vital Signs Temp 36.5 C 07/22/23 02:01 Pulse 59 L 07/22/23 02:01 Resp 16 07/22/23 02:01 BP 122/79 07/22/23 02:01 Pulse Ox 94 07/22/23 02:01 O2 Del Method Room Air 07/22/23 02:01 O2 Flow Rate 2 07/21/23 14:16 Intake & Output 07/21/23 07/22/23 07/22/23 18:59 06:59 18:59 Intake Total 2162.5 / 4219.167 2056.667 / 4219.167 Output Total 186 / 1561 1375 / 1561 Balance 1976.5 / 2658.167 681.667 / 2658.167 Weight 98.5 kg Intake: IV 272.5 / 2329.167 2056.667 / 2329.167 Lactated Ringer's 1,000 ml @ 15 0 / 0 mls/hr IV .Q24H DAMARIS Rx#: [id number] Sodium Chloride 0.9% 1,000 ml @ 2056.667 / 2056.667 100 mls/hr IV .Q10H DAMARIS Rx#: [id number] Tranexamic Acid / 0.7% NaCl 1, 200 / 200 000 mg In 100 ml @ 600 mls/hr IV TODAY@0600 DAMARIS Rx#:[id number] ceFAZolin 3000MG 72.5 ml @ 130 72.5 / 72.5 mls/hr IV PREOP DAMARIS Rx#: [id number] IV Perioperative 1300 / 1300 Oral 200 / 200 Other 390 / 390 Output: Urine 100 / 1275 1175 / 1275 Estimated Blood Loss 5 / 5 Drain Output 80 / 280 200 / 280 Right Knee Hemovac 80 / 280 200 / 280 # Bowel Movements 1 / Other: Other Intake Source OR IV fluid # Unmeasured Voids 1 1 Musculoskeletal right knee: NVDI, calf SNT, negative nathan sign. DP palpable, able to wiggle toes/ankle movement without difficulty. dressing clean dry and intact. Discharge Data Allergies Allergy/AdvReac Type Severity Reaction Status Date / Time bee venom protein (honey bee) Allergy Severe Anaphylaxis Verified 07/21/23 06:13 Procedures Performed Operation Date: 07/21/23 08:15 Actual Procedures p Right Total Knee Arthroplasty(Right) - Gerald Christiansen DO Ordered Studies 07/21/23 05:00 US - OR guided needle placemen Routine Hospital Course (1) History of total right knee replacement: POD #1 s/p Right TKA pt/ot dvt proph with SAUL/SCD/ASA plan for d/c home with HHPT Total Time Total Time Spent Total Time Spent (In Minutes): 20 Discharge Plan Discharge Items Patient Disposition: Home - Home Health Services Reason For Visit: Right Knee Osteoarthritis Discharge Diagnosis: right total knee replacement Activity: Per Instructions section Weightbearing Comment: WBAT with walker Non-emergency contact: Surgeon Call non-emergency contact if: you have any medication questions, your temperature is above 101, your wound has increased redness, your wound has increased drainage and your wound pain has increased Follow-up/Referrals: Luke Valladares MD [Primary Care Provider] - Diet: Regular Addtl Attending Provider Instructions: ACTIVITY RECOMMENDATIONS: SELF CARE INSTRUCTIONS AFTER TOTAL KNEE REPLACEMENT A. You may need to continue a physical therapy program after discharge from the hospital. There are several options available to you. Your doctor will assist you in selecting the best one for you. 1. An out-patient facility 2 to 3 times a week for therapy or home therapy. 2. Continue working on all exercises taught to you in the hospital. Your goals should be to increase bending of your knee to 90 degrees and beyond and to fully straighten your knee. B. You may progress at your own pace from walking with a walker or crutches to a cane; then to no assistive devices. C. Make walking a part of your daily routine. Be up as much as comfortable with rest periods throughout the day. Rest with leg elevation is very important. Use the ice wrap frequently for the first 3-4 weeks. D. There are no restrictions on activities. You may ride in a car, shop, participate in rolling machine operator and all social activities. E. Wear the long elastic stockings (SAUL hose) 20 hours a day for 2 weeks after surgery. They can be removed several times a day for laundering and for a bath. F. You may shower, no tub baths until cleared by your doctor. SPECIAL CARE INSTRUCTIONS: VERY IMPORTANT TO READ AND REVIEW A. There are a few signs you need to watch for after you are home. Call [facility] if you notice any of the followin. Increased severe knee pain. Some pain is expected especially when you exercise. 2. Increased swelling in your leg or knee; pain or swelling of the calf muscle in either lower leg. 3. Any fluid drainage from the incision. 4. Shortness of breath or chest pain. B. Please call [facility] at if you have any concerns or questions about your operation or recovery. The doctor or his nurse will return your call promptly. C. You must take antibiotics before dental work, bladder, bowel or other surgery. Your doctor will provide you with a permanent care to carry describing this precaution. IMPORTANT: * REMEMBER TO TAKE ASPIRIN, 81 MG, TWICE DAILY FOR 4 WEEKS UNLESS OTHERWISE DIRECTED. THIS IS YOUR BLOOD THINNER. * HIGH RISK PATIENTS MAY BE PRESCRIBED A STRONGER BLOOD THINNER. THIS WILL BE PROVIDED AT DISCHARGE. * CALL IF INCREASED PAIN, REDNESS, DRAINAGE OR FEVER GREATER THAT 101. * WEAR SAUL HOSE 20 HOURS PER DAY FOR 2 WEEKS. DRESSING INSTRUCTIONS * DANUTA Dressing- This is a large suction dressing covering your incision. This will help pull any excess drainage from the wound and allow your incision to heal properly. You may shower with this if you can keep the unit outside of the shower. If any bleeding or leakage is noted please call your doctor's office. This will remain on your incision for 7 days and then should be removed. This can be done yourself or by the home nursing staff if applicable. The entire unit is disposable once removed. Once removed, keep incision clean and dry. If redness or drainage is noted, please call your surgeon. ONCE DANUTA IS REMOVED, FOLLOW THESE INSTRUCTIONS: DERMABOND Prineo- This is a mesh tape dressing that is covered with glue. It should remain in place until the incision is properly healed, usually 10-14 days. This dressing is designed to naturally slough off. You may trim the excess mesh tape as it peels off. Incision may be briefly wet in a shower. Dry immediately by blotting with a clean, dry towel. Do not bath or swim until instructed by your doctor. Do not scratch, rub, or pick at the dressing. Do not apply any topical ointments or lotions until dressing is completely removed and/or instructed by your doctor. There may be a small piece of suture material at one end of your incision. Do not pull or trim this. If it is bothersome or catching on clothing, you may cover it with a band-aid. IF INCISION IS LEAKING THROUGH DRESSING, CALL THE OFFICE . FOLLOW UP VISIT: If appointment is not already scheduled: Please call [facility] to make a follow-up appointment for 2 weeks after your surgery at . Pending Studies at Discharge: No Stand-Alone Forms: [facility] Medications and DC Order Prescriptions: New oxycodone [OxyContin] 10 mg Tablet,Oral Only,Ext.Rel.12 Hr 10 mg PO Q12 3 Days Qty: 6 0RF Rx Instructions: ongoing therapy, supervising dr mckenzie christiansen. max 2 tabs in 24 hours. date of surgery 07/21/23 celecoxib [Celebrex] 200 mg capsule 200 mg PO BID 30 Days Qty: 60 0RF hydrocodone-acetaminophen 5-325 mg tablet 1 - 2 tab PO Q6H PRN (Reason: pain) Qty: 30 0RF Rx Instructions: ongoing therapy, supervising dr mckenzie christiansen. max 6 tabs in 24 hours. date of surgery 07/21/23 aspirin 81 mg tablet,delayed release (DR/EC) 81 mg PO BID 30 Days Qty: 60 0RF cefadroxil 500 mg capsule 500 mg PO BID 14 Days Qty: 28 0RF Continued metoprolol tartrate 25 mg Tablet 25 mg PO QAM cholecalciferol (vitamin D3) [Vitamin D3] 125 mcg (5,000 unit) Tablet 125 mcg PO DAILY vitamin K2 40 mcg Tablet 40 mcg PO DAILY Docusate Sodium 100 MG capsule 100 mg PO BID PRN (Reason: Constipation) metformin 500 mg Tablet 500 mg PO QAM lisinopril 20 mg Tablet 20 mg PO QAM tamsulosin 0.4 mg Capsule 0.4 mg PO QAM pantoprazole 40 mg Tablet,Delayed Release (Dr/Ec) 40 mg PO QAM albuterol sulfate 90 mcg/actuation Hfa Aerosol Inhaler 2 puff INHALATION QID PRN (Reason: sob) enalapril maleate [Vasotec] 5 mg Tablet 5 mg PO QAM Discontinued oxycodone-acetaminophen 10-325 mg Tablet 1 tab PO Q8H PRN (Reason: Pain) aspirin 81 mg Capsule 81 mg PO DAILY hydrocodone-acetaminophen 5-325 mg Tablet 1 tab PO Q8H PRN (Reason: Pain) Admission Data Admit Date/Time: 07/21/23 09:03 Attending Provider: Gerald Christiansen Admit Provider: Gerald Christiansen Primary Care Provider: Luke Valladares
[2023-07-22] MEDS ORDERED: CeleBREX 200 MG CAP PO SCH (21:00)
== END 2023-07-22 10:40 | disposition home health service (06) ==
LOC: ASU 05:42 → 3E 05:42